=== PATIENT | male | born 1955 | race Caucasian/White ===

== ENCOUNTER 2018-01-03 13:59 | Observation (INO) | payer BC ==
[~2018-01-03] VITALS: Ht 170.2 cm; Wt 70.5 kg
[~2018-01-03 13:59] MED LIST: LORTAB 10-325 M1 TAB PO; LORTAB5 OR; NO HOME MEDS; ZOFRAN ODT4 MG PO
[2018-01-03 14:27] LABS: GFR > 60 ML/MIN (>=60 (CALC)); GFR FOR AFR.AMER. > 60 ML/MIN (>=60 (CALC))
[2018-01-03 14:30] LABS: IMMATURE GRANULOCYTES 0.3 % (0.0-5.0); MEAN CELL VOLUME 95.4 fL CALC (80.0-100.0); MEAN CORPUSCULAR HGB 32.1 pG CALC (26.0-32.0); MEAN CORPUSCULAR HGB CONC 33.6 g/L CALC (32.0-36.0); NEUT# 8.11 thou/uL (1.82-7.42); RED BLOOD COUNT 3.68 mill/uL (4.70-6.10); RED CELL DISTRI WIDTH 13.5 % (11.5-15.5)
[2018-01-03 14:36] LABS: HEMATOCRIT 35.1 % (39.0-50.0); HEMOGLOBIN 11.8 g/dl (14.0-18.0)
[2018-01-03 15:01] LABS: ALBUMIN 3.7 g/dL (3.2-5.0); ALKALINE PHOSPHATASE 309 u/l (38-126); BILIRUBIN, TOTAL 3.1 mg/dL (0.0-1.4); BUN 32 mg/dL (8-23); BUN/CREATININE RATIO 35 (12-20 (CALC)); CARBON DIOXIDE 26 mmol/l (22-30); CHLORIDE 106 mmol/l (95-108); CREATININE 0.9 mg/dL (0.7-1.3); GFR > 60 ML/MIN (>=60 (CALC)); GFR FOR AFR.AMER. > 60 ML/MIN (>=60 (CALC)); SGOT/AST 52 u/l (19-48); SODIUM 141 mmol/l (137-146); TOTAL PROTEIN 6.7 g/dL (6.3-8.2)
[2018-01-03 15:08] LABS: ANION GAP 14 (6-22 (CALC)); POTASSIUM 4.8 mmol/l (3.5-5.1)
[2018-01-03 19:05] VITALS: BP 124/59
== END 2018-01-03 20:04 | DRG 443 ==
LOC: ED 13:59 → ED-I 15:08 → ED 15:48 → MS2 15:49
PROVIDERS: Family Medicine; ADMIT Internal Medicine Nephrology; ATTEND Internal Medicine Nephrology
DX: K72.00 Acute and subacute hepatic failure without coma (principal); R55 Syncope and collapse; K80.20 Calculus of gallbladder without cholecystitis without obstruction; D64.9 Anemia, unspecified; Z96.89 Presence of other specified functional implants
CPT/HCPCS: G0378; Q9967

== ENCOUNTER 2020-12-06 18:03 | Emergency (ER) | payer MEDICARE, OTHER ==
[~2020-12-06] VITALS: Ht 170.2 cm; Wt 57.0 kg
[2020-12-06] MEDS ORDERED: AMLODIPINE BESYL5 MG PO (18:24)
[2020-12-06] MEDS ORDERED: POTASSI19 PO (18:25)
[2020-12-06 19:04] LABS: HEMATOCRIT 35.4 % (39.0-50.0); HEMOGLOBIN 11.6 g/dl (14.0-18.0); IMMATURE GRANULOCYTES 0.5 % (0.0-5.0); MEAN CORPUSCULAR HGB 32.8 pG CALC (26.0-32.0); MEAN CORPUSCULAR HGB CONC 32.8 g/dL CAL (32.0-36.0); NEUT# 3.04 thou/uL (1.82-7.42); RED BLOOD COUNT 3.54 mill/uL (4.70-6.10); RED CELL DISTRI WIDTH 12.6 % (11.5-15.5)
[2020-12-06 19:13] LABS: ALKALINE PHOSPHATASE 156 u/l (38-126); BUN 14 mg/dL (8-23); BUN/CREATININE RATIO 14 (12-20 (CALC)); CARBON DIOXIDE 29 mmol/l (22-30); CHLORIDE 108 mmol/l (95-108); GFR > 60 ML/MIN (>=60 (CALC)); GFR FOR AFR.AMER. > 60 ML/MIN (>=60 (CALC)); LIPASE 13 u/l (23-300); SGOT/AST 34 u/l (19-48); SODIUM 143 mmol/l (137-146); TOTAL PROTEIN 6.1 g/dL (6.3-8.2)
[2020-12-06 19:16] LABS: ANION GAP 10 (6-22 (CALC)); BILIRUBIN, TOTAL 0.8 mg/dL (0.0-1.4); POTASSIUM 3.6 mmol/l (3.5-5.1)
[2020-12-06 20:03] LABS: URINE BILIRUBIN - DIPSTICK NEGATIVE (NEGATIVE); URINE BLOOD DIPSTICK LARGE (NEGATIVE); URINE COLOR ORANGE; URINE GLUCOSE - DIPSTICK NEGATIVE (NEGATIVE); URINE KETONE TRACE mg/dL (NEGATIVE); URINE LEUK ESTERASE NEGATIVE (NEGATIVE); URINE PH 6.5 (4.5-8.0); URINE PROTEIN - DIPSTICK TRACE mg/dL (NEG-TRACE); URINE SPECIFIC GRAVITY 1.025
[2020-12-06 20:12] LABS: URINE NITRITE - DIPSTICK POSITIVE (Negative)
[2020-12-06 20:18] LABS: URINE RBC 25-50 RBC/hpf (0-5); URINE WBC 0-2 WBC/hpf (0-5)
[2020-12-06] MEDS ORDERED: Levaquin PO (21:19)
[2020-12-06] MEDS ORDERED: HYDROCO/APAP1 TA9 PO (21:19)
[2020-12-06] MEDS ORDERED: ZOFRAN4 MG/TAB PO (21:19)
[2020-12-06 22:22] VITALS: BP 149/80
== END 2020-12-06 22:25 | disposition home or self-care (01) ==
LOC: ED 18:03
PROVIDERS: Family Medicine
DX: N39.0 Urinary tract infection, site not specified (principal); J18.9 Pneumonia, unspecified organism; K59.00 Constipation, unspecified; I10 Essential (primary) hypertension; Z87.442 Personal history of urinary calculi; Z85.09 Personal history of malignant neoplasm of other digestive organs; Z20.822 Contact with and (suspected) exposure to COVID-19
CPT/HCPCS: Q9967

== ENCOUNTER 2021-05-18 08:22 | Day surgery (SDC) | payer MEDICARE, OTHER ==
[~2021-05-18] VITALS: Ht 170.2 cm; Wt 53.5 kg
[~2021-05-18 08:22] MED LIST changes: +AMLODIPINE BESYL5 MG PO; +B12-ACTIVE1 MG PO; +HYDROCO/APAP1 TA9 PO; +Levaquin PO; +MIRTAZAPINE15 M1 PO; +OMEPRAZOLE DR40 MG PO; +POTASSI19 PO; +ZOFRAN4 MG/TAB PO
[2021-05-18 13:27] VITALS: BP 148/86
== END 2021-05-18 11:45 | disposition home or self-care (01) ==
LOC: ENDO 08:22 → ORM 10:00 → ENDO 10:00
PROVIDERS: ATTEND Surgery
PROC: 0DJD8ZZ Inspection of Lower Intestinal Tract, Via Natural or Artificial Opening Endoscopic (ICD-10-PCS; principal; 2021-05-18)
PROC: 0DJ08ZZ Inspection of Upper Intestinal Tract, Via Natural or Artificial Opening Endoscopic (ICD-10-PCS; 2021-05-18)
DX: K29.70 Gastritis, unspecified, without bleeding (principal); K57.30 Diverticulosis of large intestine without perforation or abscess without bleeding; Q43.9 Congenital malformation of intestine, unspecified; Z98.890 Other specified postprocedural states; Z85.09 Personal history of malignant neoplasm of other digestive organs

== ENCOUNTER 2021-09-28 18:22 | Emergency (ER) | payer MEDICARE, OTHER ==
[~2021-09-28] VITALS: Ht 170.2 cm; Wt 51.3 kg
[2021-09-28] VITALS (10 sets, daily range): BP systolic 113–152; BP diastolic 56–84
[2021-09-28 18:56] LABS: HEMATOCRIT 35.3 % (39.0-50.0); HEMOGLOBIN 12.1 g/dl (14.0-18.0); IMMATURE GRANULOCYTES 0.6 % (0.0-5.0); MEAN CELL VOLUME 101.4 fL CALC (80.0-100.0); MEAN CORPUSCULAR HGB 34.8 pG CALC (26.0-32.0); MEAN CORPUSCULAR HGB CONC 34.3 g/dL CAL (32.0-36.0); NEUT# 2.33 thou/uL (1.82-7.42); RED BLOOD COUNT 3.48 mill/uL (4.70-6.10); RED CELL DISTRI WIDTH 12.6 % (11.5-15.5)
[2021-09-28 19:36] LABS: ALBUMIN 2.5 g/dL (3.2-5.0); ALKALINE PHOSPHATASE 130 u/l (38-126); BILIRUBIN, TOTAL 0.6 mg/dL (0.0-1.4); BUN 11 mg/dL (8-23); BUN/CREATININE RATIO 10 (12-20 (CALC)); CARBON DIOXIDE 25 mmol/l (22-30); CREATININE 1.1 mg/dL (0.7-1.3); GFR FOR AFR.AMER. > 60 ML/MIN (>=60 (CALC)); GFR OTHER RACES > 60 ML/MIN (>=60 (CALC)); TOTAL PROTEIN 5.3 g/dL (6.3-8.2)
[2021-09-28 19:37] LABS: ANION GAP 10 (6-22 (CALC)); CHLORIDE 108 mmol/l (95-108); POTASSIUM 3.2 mmol/l (3.5-5.1); SGOT/AST 63 u/l (19-48); SODIUM 140 mmol/l (137-146)
[2021-09-28 19:52] LABS: URINE BILIRUBIN - DIPSTICK NEGATIVE (NEGATIVE); URINE BLOOD DIPSTICK NEGATIVE (NEGATIVE); URINE COLOR YELLOW; URINE GLUCOSE - DIPSTICK 100 mg/dL (NEGATIVE); URINE KETONE TRACE mg/dL (NEGATIVE); URINE LEUK ESTERASE NEGATIVE (NEGATIVE); URINE PROTEIN - DIPSTICK NEGATIVE (NEG-TRACE); URINE UROBILINOGEN - DIPSTICK 0.2 E.U./dL (0.2)
[2021-09-28 19:59] LABS: URINE NITRITE - DIPSTICK NEGATIVE (Negative)
== END 2021-09-28 21:33 | disposition home or self-care (01) ==
LOC: ED 18:22
PROVIDERS: Family Medicine
DX: I95.1 Orthostatic hypotension (principal); U07.1 COVID-19; K59.00 Constipation, unspecified; F17.200 Nicotine dependence, unspecified, uncomplicated
CPT/HCPCS: Q9967